=== PATIENT | female | born 1970 | race Caucasian/White ===

== ENCOUNTER 2017-07-07 10:43 | Emergency (ER) | payer OTHER ==
[~2017-07-07] VITALS: Ht 162.6 cm; Wt 49.9 kg
[2017-07-07 10:48] VITALS: BP 140/97
== END 2017-07-07 11:15 | disposition home or self-care (01) ==
LOC: ER 10:44
DX: H92.01 Otalgia, right ear (principal); Z90.710 Acquired absence of both cervix and uterus
CPT/HCPCS: A4606; Z7610

== ENCOUNTER 2019-01-01 15:34 | Emergency (ER) | payer OTHER ==
[~2019-01-01] VITALS: Ht 157.5 cm; Wt 44.0 kg
--- NOTE | 2019-01-01 15:48 | NUR ---
"SOB & HAD SYNCOPAL EPISODE AROUND 1030 PER PT. DENIES CP, DIZZINESS, NV @ THIS TIME" PT AAOX4, -SOB, NAD NOTED, VSS ,PENDING MD SANTOS
[2019-01-01 16:25] LABS: BASOPHILS # (AUTO) 0.1 /CMM (0.0-0.2); BASOPHILS % (AUTO) 0.8 % (0.0-2.0); EOSINOPHILS % (AUTO) 0.5 % (0.0-6.0); HEMATOCRIT 41 % (33-45); LYMPHOCYTES # (AUTO) 1.5 /CMM (0.8-4.8); LYMPHOCYTES % (AUTO) 19.2 % (20.0-44.0); MEAN CORPUSCULAR HGB CONC 34 g/dl (31.0-36.0); MEAN CORPUSCULAR VOLUME 100 fL (82-100); MONOCYTES # (AUTO) 0.8 /CMM (0.1-1.30); NEUTROPHILS # (AUTO) 5.5 /CMM (1.8-8.9); NEUTROPHILS % (AUTO) 69.5 % (43.0-81.0); PLATELET COUNT (AUTO) 206 /CMM (150-450); RED BLOOD CELL COUNT(AUTO) 4.08 MIL/uL (4.0-5.2); WHITE BLOOD COUNT (AUTO) 7.9 K/uL (4.3-11.0)
[2019-01-01] MEDS ORDERED: IV NS 0.9% 1,000 ML BAG IV ONE (16:30)
[2019-01-01 16:31] LABS: CALCIUM, SERUM 9.3 mg/dL (8.5-10.1); CARBON DIOXIDE 26 mmol/L (21-32); CHLORIDE 106 mmol/L (98-107); CREATININE 0.6 mg/dL (0.6-1.3); GLUCOSE 103 mg/dL (74-106); POTASSIUM 3.8 mmol/L (3.5-5.1); SODIUM SERUM 141 mmol/L (136-145); UREA NITROGEN, BLOOD 9 mg/dL (7-18)
[2019-01-01 16:37] LABS: ALANINE AMINOTRANSFERASE 14 U/L (12-78); ALBUMIN 3.9 g/dL (3.4-5.0); ALKALINE PHOSPHATASE 53 U/L (46-116); ASPARTATE AMINOTRANSFERASE 8 U/L (15-37); BILIRUBIN,DIRECT 0.1 mg/dL (0.0-0.2); BILIRUBIN,TOTAL 0.4 mg/dL (0.2-1.0); TOTAL PROTEIN, SERUM 6.7 g/dL (6.4-8.2)
[2019-01-01 18:00] VITALS: BP 152/85
--- NOTE | 2019-01-01 18:08 | NUR ---
Patient discharged to home in stable condition. Written and verbal after care instructions given. Patient verbalizes understanding of instruction.
== END 2019-01-01 18:11 | disposition home or self-care (01) ==
LOC: ER 15:34
DX: R55 Syncope and collapse (principal); F17.200 Nicotine dependence, unspecified, uncomplicated; Z90.710 Acquired absence of both cervix and uterus; Z98.890 Other specified postprocedural states; Z85.41 Personal history of malignant neoplasm of cervix uteri
CPT/HCPCS: 36415; 71045; 80048; 80076; 84484; 85025; 85730; 93005; 96360; 99284; 99406; J7030

== ENCOUNTER 2022-06-05 21:16 | Inpatient (IN) | payer OTHER ==
[~2022-06-05] VITALS: Ht 162.6 cm; Wt 49.9 kg
[2022-06-05] MEDS ORDERED: NALOXONE PREFILLED SYRINGE 2 MG/2 ML SYRINGE ONE (21:23)
[2022-06-05] MEDS ORDERED: IV NS 0.9% 1,000 ML BAG IV ONE (21:30)
[2022-06-05] MEDS ORDERED: NALOXONE HCL 0.4 MG/ML AMPUL IV ONE (21:30)
[2022-06-05] MEDS ORDERED: PROPOFOL 100 ML ONE (21:51)
[2022-06-05 22:22] LABS: BASOPHILS % (AUTO) 0.2 % (0.0-2.0); EOSINOPHILS % (AUTO) 0.7 % (0.0-6.0); HEMATOCRIT 41 % (33-45); LYMPHOCYTES # (AUTO) 0.6 K/uL (0.8-4.8); LYMPHOCYTES % (AUTO) 6.4 % (20.0-44.0); MEAN CORPUSCULAR HGB CONC 32 g/dl (31.0-36.0); MEAN CORPUSCULAR VOLUME 104 fL (82-100); MONOCYTES # (AUTO) 1.2 K/uL (0.1-1.30); MONOCYTES % (AUTO) 12.1 % (2.0-12.0); NEUTROPHILS % (AUTO) 80.6 % (43.0-81.0); PLATELET COUNT (AUTO) 212 K/uL (150-450); RED BLOOD CELL COUNT(AUTO) 3.91 MIL/uL (4.0-5.2)
[2022-06-05 22:29] LABS: BILIRUBIN,URINE NEGATIVE (NEGATIVE); COLOR,URINE OTHER (YELLOW); LEUKOCYTE ESTERASE ,URINE NEGATIVE (NEGATIVE); NITRITE, URINE NEGATIVE (NEGATIVE); PROTEIN,URINE NEGATIVE (NEGATIVE); UGLUCOSE 3+ mg/dL (NEGATIVE); UROBILINOGEN,URINE 0.2 EU/dL (0.2)
[2022-06-05 22:48] LABS: SERUM AMMONIA 22 umol/L (11-32)
[2022-06-05 22:49] LABS: CALCIUM, SERUM 7.6 mg/dL (8.5-10.1); CARBON DIOXIDE 21 mmol/L (21-32); CHLORIDE 105 mmol/L (98-107); CREATININE 1.3 mg/dL (0.6-1.3); GLUCOSE 103 mg/dL (74-106); POTASSIUM 5.8 mmol/L (3.5-5.1); SODIUM SERUM 136 mmol/L (136-145); UREA NITROGEN, BLOOD 15 mg/dL (7-18)
[2022-06-05 22:57] LABS: ACETAMINOPHEN < 10 ug/ml (10-30); ALANINE AMINOTRANSFERASE 59 U/L (12-78); ALBUMIN 2.8 g/dL (3.4-5.0); ALCOHOL, BLOOD < 3 mg/dL (0-0); ALKALINE PHOSPHATASE 111 U/L (46-116); BILIRUBIN,DIRECT 0.1 mg/dL (0.0-0.2); BILIRUBIN,TOTAL 0.1 mg/dL (0.2-1.0); TOTAL PROTEIN, SERUM 6.1 g/dL (6.4-8.2)
[2022-06-05] MEDS ORDERED: IV NS 0.9% 1,000 ML IV ONE (23:00)
[2022-06-05 23:10] LABS: THYROID STIMULATING HORMONE 1.766 uIU/mL (0.358-3.74)
[2022-06-05 23:11] LABS: WBC,URINE 0-2 /HPF (0-3)
[2022-06-05] MEDS ORDERED: MIDAZOLAM 50 MG/10 ML VIAL ONE (23:11)
[2022-06-05 23:12] LABS: ASPARTATE AMINOTRANSFERASE 61 U/L (15-37); BACTERIA,URINE Rare /HPF (None Seen); SQUAMOUS EPITHELIAL CELL,UR Rare /HPF (None Seen)
[2022-06-05] MEDS: MIDAZOLAM HCL 50 MG in IV NS 0.9% 40 ML IV PRN (23:24)
[2022-06-05] MEDS ORDERED: ETOMIDATE 2 MG/ML VIAL IV ONE (23:30)
[2022-06-05] MEDS ORDERED: Z GUARD REMEDY 4 OZ OINT TP PRN (23:30)
[2022-06-05] MEDS ORDERED: ONDANSETRON HCL/PF 4 MG/2 ML VIAL IVP PRN (23:30)
[2022-06-05] MEDS ORDERED: PIPERACILLIN /TAZOBACTAM 3.375 G in IV D5W 50 ML IV ONE (23:30)
[2022-06-05] MEDS ORDERED: SUCCINYLCHOLINE CHLORIDE 20 MG/ML VIAL IV ONE (23:30)
[2022-06-05] MEDS ORDERED: ACETAMINOPHEN 650 MG/SUPP.RECT RC PRN (23:30)
[2022-06-05] MEDS ORDERED: ENOXAPARIN SODIUM 40 MG/0.4 ML DISP.SYRIN SQ ONE (23:59)
[2022-06-05] MEDS ORDERED: PANTOPRAZOLE 40 MG VIAL ONE (23:59)
[2022-06-05] MEDS ORDERED: PIPERACILLIN /TAZOBACTAM 3.375 G VIAL IV ONE (23:59)
[2022-06-06] VITALS (89 sets, daily range): BP systolic 78–160; BP diastolic 39–138
[2022-06-06] MEDS: PANTOPRAZOLE 40 MG VIAL IV SCH ×2 (00:08→09:18)
[2022-06-06] MEDS: ENOXAPARIN SODIUM 40 MG/0.4 ML DISP.SYRIN SQ SCH ×2 (00:09→20:42)
[2022-06-06] MEDS: MIDAZOLAM HCL 50 MG in IV NS 0.9% 40 ML IV PRN ×2 (00:10→00:49)
[2022-06-06 00:42] LABS: ABG PCO2 33.5 mmHg (35.0-45.0); ABG PH 7.285 (7.350-7.450); ABG PO2 149.3 mmHg (75.0-100.0); COHb 0.5 % (0.5-1.5); MetHb 0.1 % (0.0-1.5); O2Hb 98.3 % (94.0-97.0); SITE, ABG Left Radial; VENT MODE, BG AC 18 450 40% +5
[2022-06-06] MEDS: PROPOFOL 100 ML IV PRN ×4 (01:30→18:36)
[2022-06-06] MEDS ORDERED: SODIUM BICARBONATE SYR 50 MEQ/50 ML DISP.SYRIN IV STA (01:56)
[2022-06-06] MEDS ORDERED: IV NS 0.9% 1,000 ML IV ONE (02:00)
[2022-06-06] MEDS ORDERED: NOREPINEPHRINE 8 MG in IV NS 0.9% 242 ML IV PRN (02:00)
[2022-06-06] MEDS ORDERED: NOREPINEPHRINE 8MG/250ML RTU 250 ML IV ONE (02:06)
[2022-06-06] MEDS: IV NS 0.9% 1,000 ML IV PRN ×2 (02:34→14:33)
[2022-06-06 05:17] LABS: BASOPHILS % (AUTO) 0.4 % (0.0-2.0); EOSINOPHILS % (AUTO) 0.3 % (0.0-6.0); HEMATOCRIT 36 % (33-45); HEMOGLOBIN 12.1 g/dL (11.5-14.8); LYMPHOCYTES # (AUTO) 1.1 K/uL (0.8-4.8); LYMPHOCYTES % (AUTO) 12.6 % (20.0-44.0); MEAN CORPUSCULAR HGB CONC 33 g/dl (31.0-36.0); MEAN CORPUSCULAR VOLUME 102 fL (82-100); MONOCYTES % (AUTO) 11.2 % (2.0-12.0); NEUTROPHILS # (AUTO) 6.6 K/uL (1.8-8.9); NEUTROPHILS % (AUTO) 75.5 % (43.0-81.0); PLATELET COUNT (AUTO) 194 K/uL (150-450); RED BLOOD CELL COUNT(AUTO) 3.56 MIL/uL (4.0-5.2); WHITE BLOOD COUNT (AUTO) 8.7 K/uL (4.3-11.0)
[2022-06-06 05:30] LABS: CALCIUM, SERUM 6.9 mg/dL (8.5-10.1); CREATININE 0.9 mg/dL (0.6-1.3); MAGNESIUM 1.7 mg/dL (1.8-2.4); PHOSPHORUS 2.5 mg/dL (2.5-4.9); POTASSIUM 4.3 mmol/L (3.5-5.1)
[2022-06-06] MEDS ORDERED: METO50TA16 PO (07:52)
[2022-06-06] MEDS ORDERED: ETOMIDATE 2 MG/ML VIAL IV ONE (08:48)
[2022-06-06] MEDS: Magnesium 1GM/D5W 100ML PREMIX 100 ML IV SCH ×2 (11:44→12:56)
[2022-06-07] VITALS (67 sets, daily range): BP systolic 96–182; BP diastolic 59–113
[2022-06-07] MEDS: PROPOFOL 100 ML IV PRN ×5 (00:10→19:49)
[2022-06-07] MEDS: IV NS 0.9% 1,000 ML IV PRN (02:14)
[2022-06-07 05:04] LABS: CREATININE 0.5 mg/dL (0.6-1.3); POTASSIUM 3.4 mmol/L (3.5-5.1)
[2022-06-07 07:26] LABS: BASOPHILS % (AUTO) 0.2 % (0.0-2.0); EOSINOPHILS % (AUTO) 4.3 % (0.0-6.0); HEMATOCRIT 33 % (33-45); HEMOGLOBIN 10.8 g/dL (11.5-14.8); LYMPHOCYTES # (AUTO) 1.1 K/uL (0.8-4.8); LYMPHOCYTES % (AUTO) 17.7 % (20.0-44.0); MEAN CORPUSCULAR HGB CONC 33 g/dl (31.0-36.0); MEAN CORPUSCULAR VOLUME 100 fL (82-100); MONOCYTES # (AUTO) 0.6 K/uL (0.1-1.30); MONOCYTES % (AUTO) 9.4 % (2.0-12.0); NEUTROPHILS # (AUTO) 4.3 K/uL (1.8-8.9); NEUTROPHILS % (AUTO) 68.4 % (43.0-81.0); PLATELET COUNT (AUTO) 206 K/uL (150-450); RED BLOOD CELL COUNT(AUTO) 3.25 MIL/uL (4.0-5.2); WHITE BLOOD COUNT (AUTO) 6.3 K/uL (4.3-11.0)
[2022-06-07] MEDS: PANTOPRAZOLE 40 MG VIAL IV SCH (08:11)
[2022-06-07] MEDS: IV D5/ 0.9% NACL 1,000 ML IV PRN (08:36)
[2022-06-07] MEDS: POTASSIUM CL. PREMIX PERIPHER. 50 ML IV SCH ×2 (09:39→10:41)
[2022-06-07 09:58] LABS: ABG BASE EXCESS -6.8 mmol/L; ABG PCO2 43.1 mmHg (35.0-45.0); ABG PH 7.278 (7.350-7.450); ABG PO2 90.7 mmHg (75.0-100.0); AaDO2 144.9 mmHg; COHb 0.2 % (0.5-1.5); MetHb 0.3 % (0.0-1.5); O2Hb 95.5 % (94.0-97.0); SITE, ABG Right Radial; VT, ABG 450 mL
[2022-06-07] MEDS ORDERED: IV NS 0.9% 250 ML IV PRN (12:00)
[2022-06-07] MEDS: ENOXAPARIN SODIUM 40 MG/0.4 ML DISP.SYRIN SQ SCH (20:56)
[2022-06-08] VITALS (37 sets, daily range): BP systolic 126–194; BP diastolic 70–149
[2022-06-08] MEDS: IV D5/ 0.9% NACL 1,000 ML IV PRN ×2 (00:32→15:43)
[2022-06-08] MEDS: PROPOFOL 100 ML IV PRN ×2 (00:33→06:27)
[2022-06-08 05:24] LABS: BASOPHILS # (AUTO) 0.1 K/uL (0.0-0.2); BASOPHILS % (AUTO) 1.9 % (0.0-2.0); HEMATOCRIT 35 % (33-45); HEMOGLOBIN 11.6 g/dL (11.5-14.8); LYMPHOCYTES # (AUTO) 0.9 K/uL (0.8-4.8); MEAN CORPUSCULAR HGB CONC 34 g/dl (31.0-36.0); MEAN CORPUSCULAR VOLUME 100 fL (82-100); MONOCYTES # (AUTO) 0.8 K/uL (0.1-1.30); MONOCYTES % (AUTO) 11.5 % (2.0-12.0); NEUTROPHILS # (AUTO) 4.4 K/uL (1.8-8.9); NEUTROPHILS % (AUTO) 65.6 % (43.0-81.0); PLATELET COUNT (AUTO) 211 K/uL (150-450); RED BLOOD CELL COUNT(AUTO) 3.45 MIL/uL (4.0-5.2); WHITE BLOOD COUNT (AUTO) 6.7 K/uL (4.3-11.0)
[2022-06-08 05:39] LABS: CALCIUM, SERUM 7.6 mg/dL (8.5-10.1); CREATININE 0.6 mg/dL (0.6-1.3); POTASSIUM 3.2 mmol/L (3.5-5.1)
[2022-06-08] MEDS ORDERED: DC PROPOFOL WHEN EXTUBATED XX PRN (08:00)
[2022-06-08] MEDS: PANTOPRAZOLE 40 MG VIAL IV SCH (08:17)
[2022-06-08 09:37] LABS: ABG PCO2 35.8 mmHg (35.0-45.0); ABG PH 7.393 (7.350-7.450); ABG PO2 112.4 mmHg (75.0-100.0); AaDO2 131.6 mmHg; MetHb 0.3 % (0.0-1.5); O2Hb 97.7 % (94.0-97.0); SITE, ABG Right Radial; VENT MODE, BG SIMV 4 PSV 15
[2022-06-08] MEDS: POTASSIUM CL. PREMIX PERIPHER. 50 ML IV SCH ×4 (11:01→13:59)
[2022-06-08] MEDS: HALOPERIDOL 1 MG TABLET PO SCH ×2 (12:58→16:04)
[2022-06-08] MEDS: CLONIDINE HCL 0.1 MG TABLET PO SCH ×2 (13:37→20:02)
[2022-06-08] MEDS: hydrALAZINE HCL IV 20 MG VIAL IV PRN (17:44)
[2022-06-08] MEDS ORDERED: MORPHINE SULFATE INJ 2 MG/ML DISP.SYRIN IV ONE (19:30)
[2022-06-08] MEDS: HALOPERIDOL 5 MG TABLET PO SCH (20:02)
[2022-06-08] MEDS: ENOXAPARIN SODIUM 40 MG/0.4 ML DISP.SYRIN SQ SCH (20:03)
[2022-06-09] VITALS (25 sets, daily range): BP systolic 137–189; BP diastolic 38–122
[2022-06-09] MEDS: HALOPERIDOL 5 MG TABLET PO PRN ×2 (00:02→12:23)
[2022-06-09] MEDS: hydrALAZINE HCL IV 20 MG VIAL IV PRN ×3 (00:03→19:10)
[2022-06-09] MEDS: CLONIDINE HCL 0.1 MG TABLET PO SCH ×3 (04:21→21:44)
[2022-06-09 05:25] LABS: CALCIUM, SERUM 8.6 mg/dL (8.5-10.1); CREATININE 0.5 mg/dL (0.6-1.3)
[2022-06-09 05:26] LABS: POTASSIUM 2.8 mmol/L (3.5-5.1)
[2022-06-09] MEDS: IV D5/ 0.9% NACL 1,000 ML IV PRN (08:20)
[2022-06-09] MEDS: HALOPERIDOL 5 MG TABLET PO SCH ×2 (08:36→16:24)
[2022-06-09] MEDS: PANTOPRAZOLE 40 MG VIAL IV SCH (08:36)
[2022-06-09] MEDS: POTASSIUM CL. PREMIX PERIPHER. 50 ML IV SCH ×6 (08:37→13:31)
[2022-06-09] MEDS ORDERED: HALOPERIDOL 5 MG TABLET PO SCH (09:00)
[2022-06-09] MEDS ORDERED: IV NS 0.9% 250 ML IV PRN (09:00)
[2022-06-09] MEDS: ENOXAPARIN SODIUM 40 MG/0.4 ML DISP.SYRIN SQ SCH (21:45)
[2022-06-10] MEDS: HALOPERIDOL 5 MG TABLET PO SCH ×3 (01:10→16:50)
[2022-06-10] MEDS: CLONIDINE HCL 0.1 MG TABLET PO SCH ×3 (05:35→21:25)
[2022-06-10 05:49] VITALS: BP 150/86
[2022-06-10 08:00] VITALS: BP 137/81
[2022-06-10] MEDS: PANTOPRAZOLE 40 MG TABLET.DR PO SCH (08:12)
[2022-06-10 10:26] LABS: CALCIUM, SERUM 8.6 mg/dL (8.5-10.1); CREATININE 0.7 mg/dL (0.6-1.3); POTASSIUM 2.9 mmol/L (3.5-5.1)
[2022-06-10] MEDS: HALOPERIDOL 5 MG TABLET PO PRN (12:31)
[2022-06-10] MEDS ORDERED: POTASSIUM CHLORIDE 20 MEQ TAB.PRT.SR PO ONE (15:00)
[2022-06-10 16:00] VITALS: BP 146/96
[2022-06-10] MEDS: ENSURE ENLIVE 237 ML LIQUID (VANILLA) PO SCH (17:03)
[2022-06-10] MEDS: ENOXAPARIN SODIUM 40 MG/0.4 ML DISP.SYRIN SQ SCH (21:27)
[2022-06-11] MEDS: HALOPERIDOL 5 MG TABLET PO SCH ×3 (01:53→17:00)
[2022-06-11] MEDS: CLONIDINE HCL 0.1 MG TABLET PO SCH ×3 (05:08→20:33)
[2022-06-11 07:15] LABS: CREATININE 0.6 mg/dL (0.6-1.3); POTASSIUM 3.7 mmol/L (3.5-5.1)
[2022-06-11 08:00] VITALS: BP_SYST 123; BP_SYST 125; BP_DIAS 70; BP_DIAS 73
[2022-06-11] MEDS: PANTOPRAZOLE 40 MG TABLET.DR PO SCH (08:53)
[2022-06-11] MEDS: ENSURE ENLIVE 237 ML LIQUID (VANILLA) PO SCH ×2 (08:54→17:20)
[2022-06-11 20:33] VITALS: BP 122/70
[2022-06-11] MEDS: ENOXAPARIN SODIUM 40 MG/0.4 ML DISP.SYRIN SQ SCH (20:37)
[2022-06-11 20:45] VITALS: BP 122/70
[2022-06-12] MEDS: HALOPERIDOL 5 MG TABLET PO SCH ×3 (00:28→17:00)
[2022-06-12] MEDS: IV D5/ 0.9% NACL 1,000 ML IV PRN (00:49)
[2022-06-12] MEDS ORDERED: LORAZEPAM INJ 2 MG/ML VIAL IV ONE (01:00)
[2022-06-12] MEDS: CLONIDINE HCL 0.1 MG TABLET PO SCH ×3 (05:24→20:27)
[2022-06-12 07:00] VITALS: BP 122/81
[2022-06-12] MEDS: PANTOPRAZOLE 40 MG TABLET.DR PO SCH (08:17)
[2022-06-12] MEDS: ENSURE ENLIVE 237 ML LIQUID (VANILLA) PO SCH ×2 (08:18→17:33)
[2022-06-12 16:00] VITALS: BP 142/87
[2022-06-12 20:26] VITALS: BP 122/69
[2022-06-12] MEDS: ENOXAPARIN SODIUM 40 MG/0.4 ML DISP.SYRIN SQ SCH (20:28)
[2022-06-12 21:41] VITALS: BP 122/69
[2022-06-12] MEDS ORDERED: LORAZEPAM 1 MG TABLET PO ONE (22:30)
[2022-06-13] MEDS: HALOPERIDOL 5 MG TABLET PO SCH ×2 (01:00→08:17)
[2022-06-13 04:33] VITALS: BP 136/79
[2022-06-13] MEDS: CLONIDINE HCL 0.1 MG TABLET PO SCH ×2 (04:45→13:50)
[2022-06-13 06:35] LABS: BASOPHILS % (AUTO) 0.5 % (0.0-2.0); HEMATOCRIT 40 % (33-45); HEMOGLOBIN 13.2 g/dL (11.5-14.8); LYMPHOCYTES # (AUTO) 1.4 K/uL (0.8-4.8); MEAN CORPUSCULAR HGB CONC 33 g/dl (31.0-36.0); MEAN CORPUSCULAR VOLUME 99 fL (82-100); MONOCYTES # (AUTO) 0.7 K/uL (0.1-1.30); MONOCYTES % (AUTO) 14.7 % (2.0-12.0); NEUTROPHILS # (AUTO) 2.5 K/uL (1.8-8.9); NEUTROPHILS % (AUTO) 51.8 % (43.0-81.0); PLATELET COUNT (AUTO) 308 K/uL (150-450); WHITE BLOOD COUNT (AUTO) 4.9 K/uL (4.3-11.0)
[2022-06-13 06:56] LABS: CALCIUM, SERUM 8.8 mg/dL (8.5-10.1); CREATININE 0.5 mg/dL (0.6-1.3); POTASSIUM 3.3 mmol/L (3.5-5.1)
[2022-06-13 07:00] VITALS: BP 133/85
[2022-06-13] MEDS: ENSURE ENLIVE 237 ML LIQUID (VANILLA) PO SCH (08:15)
[2022-06-13] MEDS: PANTOPRAZOLE 40 MG TABLET.DR PO SCH (08:15)
[2022-06-13] MEDS ORDERED: POTASSIUM CHLORIDE 20 MEQ TAB.PRT.SR PO SCH (09:00)
[2022-06-13] MEDS ORDERED: HALO5TAB8 PO (10:50)
[2022-06-13 16:00] VITALS: BP 131/78
== END 2022-06-13 16:30 | disposition home or self-care (01) | DRG 812 ==
LOC: ER 21:27 → ICU 23:17 → MED 06-09 20:43
PROVIDERS: ADMIT Nurse Practitioner Acute Care; ATTEND Internal Medicine
PROC: 5A1945Z Respiratory Ventilation, 24-96 Consecutive Hours (ICD-10-PCS; principal; 2022-06-05)
PROC: 0BH18EZ Insertion of Endotracheal Airway into Trachea, Via Natural or Artificial Opening Endoscopic (ICD-10-PCS; 2022-06-05)
PROC: 05HC33Z Insertion of Infusion Device into Left Basilic Vein, Percutaneous Approach (ICD-10-PCS; 2022-06-06)
DX: T40.411A Poisoning by fentanyl or fentanyl analogs, accidental (unintentional), initial encounter (principal); J96.01 Acute respiratory failure with hypoxia; J69.0 Pneumonitis due to inhalation of food and vomit; G92.8 Other toxic encephalopathy; T40.721A Poisoning by synthetic cannabinoids, accidental (unintentional), initial encounter; Y92.009 Unspecified place in unspecified non-institutional (private) residence as the place of occurrence of the external cause; Z20.822 Contact with and (suspected) exposure to COVID-19; Z85.41 Personal history of malignant neoplasm of cervix uteri; Z90.710 Acquired absence of both cervix and uterus; Z78.1 Physical restraint status; F17.200 Nicotine dependence, unspecified, uncomplicated; E83.42 Hypomagnesemia; E87.20 Acidosis, unspecified; E87.5 Hyperkalemia; Y92.9 Unspecified place or not applicable; F05 Delirium due to known physiological condition; I10 Essential (primary) hypertension; R45.851 Suicidal ideations
CPT/HCPCS: 31720; 36415; 36600; 70450-TC; 71045-TC; 80048-TC; 80061-TC; 80076-TC; 81001; 82140-TC; 82803-TC; 82962-TC; 83735-TC; 84100-TC; 84443-TC; 84478-TC; 84703-TC; 85025-TC; 85730-TC; 87040-TC; 87081-TC; 94002-TC; 94003-TC; 94760-TC; 94799-TC; 97112-TC; 97116-TC; 97530-TC; 99082-TC; A4223; C9113; C9803; G0378; G0480; J0330; J0360; J1650; J2060; J2250; J2270; J2310; J2543; J3475; J3480; J3490; J7030; J7042; J7050; J7060